=== PATIENT | female | born 1980 ===

== ENCOUNTER 2016-12-23 08:48 | Observation (INO) | payer OTHER ==
[2016-12-23 09:23] VITALS: BP 111/67; RESP 16; O2SAT 99; BMI 21.5
--- NOTE | 2016-12-23 09:25 | ED PDOC ---
HPI: Abdomen Time Seen by Provider: 12/23/16 09:06 Chief Complaint (Nursing): Abdominal Pain Chief Complaint (Provider): Abdominal pain History Per: Patient History/Exam Limitations: no limitations Onset/Duration Of Symptoms: Days Outside of [place] travel?: No Current Symptoms Are (Timing): Still Present Location Of Pain/Discomfort: RLQ Quality Of Discomfort: "Pain" Associated Symptoms: denies: Fever, Chills, Nausea, Vomiting, Diarrhea, Urinary Symptoms Additional Complaint(s): The patient is a 36yo female, hx of ovarian cysts, uterine fibroids, presents to the ED for evaluation of right sided pelvis pain, constant for the past day and worse with movement. Patient reports the pain is less today compared to yesterday but is still present. Patient states she used to take oral contraceptives but has not used it since 2 months ago; patient reports her LMP was in October. She denies any associated vaginal bleeding, dysuria, hematuria, nausea, vomiting, fever, chills. Patient offers no additional medical complaints. Abnormal Vaginal Bleeding: No Last Menstral Period: October Past Medical History Reviewed: Historical Data, Nursing Documentation, Vital Signs Vital Signs: Last Vital Signs Temp 98.6 F 12/23/16 13:45 Pulse 48 L 12/23/16 09:50 Resp 16 12/23/16 09:15 BP 111/67 12/23/16 09:15 Pulse Ox 99 12/23/16 16:08 - Medical History PMH: No Chronic Diseases Other PMH: Ovarian cysts, uterine fibroids - Surgical History Surgical History: No Surg Hx - Family History Family History: States: No Known Family Hx, Unknown Family Hx - Allergies Allergies/Adverse Reactions: Allergies Allergy/AdvReac Type Severity Reaction Status Date / Time No Known Allergies Allergy Verified 12/23/16 09:15 Review of Systems ROS Statement: Except As Marked, All Systems Reviewed And Found Negative Constitutional: Negative for: Fever, Chills Gastrointestinal: Positive for: Abdominal Pain. Negative for: Nausea, Vomiting , Diarrhea Genitourinary Female: Positive for: Pelvic Pain (right sided). Negative for: Dysuria, Hematuria, Vaginal Bleeding Physical Exam - Reviewed Nursing Documentation Reviewed: Yes Vital Signs Reviewed: Yes - Physical Exam Appears: Positive for: Well, Non-toxic, No Acute Distress Head Exam: Positive for: ATRAUMATIC, NORMAL INSPECTION, NORMOCEPHALIC Skin: Positive for: Normal Color, Warm, DRY Eye Exam: Positive for: Normal appearance Neck: Positive for: Normal, Supple Cardiovascular/Chest: Positive for: Regular Rate, Rhythm. Negative for: Murmur Respiratory: Positive for: Normal Breath Sounds. Negative for: Respiratory Distress Gastrointestinal/Abdominal: Positive for: Normal Exam, Soft, Tenderness (right lower quadrant). Negative for: Mass, Guarding, Rebound Back: Positive for: Normal Inspection Extremity: Positive for: Normal ROM. Negative for: Deformity, Swelling Neurologic/Psych: Positive for: Alert, Oriented. Negative for: Motor/Sensory Deficits - Laboratory Results Result Diagrams: 12/23/16 09:30 12/23/16 09:30 - ECG ECG Rhythm: Positive for: ST/T Changes O2 Sat by Pulse Oximetry: 99 (RA) Pulse Ox Interpretation: Normal Medical Decision Making Medical Decision Making: Time: 914 Impression: Right lower quadrant pain DDx: Rule out , related complication; ovarian cyst rupture, ovarian torsion, UTI, appendicitis Plan: -- Labs -- US Pelvis Reassess Scribe Attestation: Documented by Tammi Saba acting as a scribe for Bebe Ambrosio MD. Provider Attestation: All medical record entries made by the Scribe were at my direction and personally dictated by me. I have reviewed the chart and agree that the record accurately reflects my personal performance of the history, physical exam, medical decision making, and the department course for this patient. I have also personally directed, reviewed, and agree with the discharge instructions and disposition. ED OBSERVATION Date of observation admission: 12/23/16 Time of observation admission: 10:10 - Observation admission statement Patient is being placed in observation because:: Patient w/ acute abdominal pain - Goals of Observation Goals of observation are:: Awaiting labs, imaging studies - Progress Note Progress Note: 12/23/16 12:12 Awaiting US results. Patient resting in room, vitals stable. 12/23/16 12:54 US Pelvis/transvag impression: Normal size uterus; 2 small uterine fibroids. Bilateral subcentimeter follicles, dominant left adnexal cyst. 12/23/16 13:30 CT AP ordered due to right lower quadrant pain 12/23/16 16:08 CT AP Impression: Findings consistent with mild and diffuse enteritis Otherwise no significant/acute findings Disposition - Clinical Impression Clinical Impression: Abdominal pain, Enteritis, Ovarian cyst, Fibroid - Patient ED Disposition Is Patient to be Admitted: No Doctor Will See Patient In The: Office Counseled Patient/Family Regarding: Studies Performed, Diagnosis, Need For Followup - Disposition Disposition: Routine/Home Disposition Time: 16:31 Condition: GOOD
[2016-12-23 09:50] VITALS: PULSE 48
[2016-12-23 09:51] LABS: BASO % 0.5 % (0.0-2.0); EOS % 0.6 % (0.0-4.0); HEMOGLOBIN 12.8 g/dL (12.0-16.0); LYMPH # 1.6 K/uL (1.0-4.3); LYMPH % 22.7 % (20.0-40.0); MEAN CELL VOLUME 94.5 fl (81.0-99.0); MEAN CORPUSCULAR HEMOGLOBIN 32.4 pg (27.0-31.0); MEAN CORPUSCULAR HGB CONC 34.3 g/dL (33.0-37.0); MEAN PLATELET VOLUME 7.3 fl (7.2-11.7); MONO # 0.3 K/uL (0.0-0.8); MONO % 4.7 % (0.0-10.0); NEUT # 4.9 K/uL (1.8-7.0); NEUT % 71.5 % (50.0-75.0); RBC 3.97 Mil/uL (3.80-5.20); RED CELL DISTRIBUTION WIDTH 13.4 % (11.5-14.5); WHITE BLOOD COUNT 6.9 K/uL (4.8-10.8)
[2016-12-23 09:52] LABS: BLOOD UREA NITROGEN 11 mg/dl (7-17); CALCIUM 8.8 mg/dL (8.4-10.2); GFR AFRICAN-AMERICAN > 60; GFR NON-AFRICAN AMERICAN > 60
--- NOTE | 2016-12-23 12:46 | US ---
HISTORY: Left-sided pelvic pain. LMP 11/24/2016. COMPARISON: None available. TECHNIQUE: Transabdominal, transvaginal. Real -time technique with 2D, duplex and color Doppler. FINDINGS: UTERUS: Measures 3.9 x 6.5 x 8.1 cm. Normal in size and appearance. Uterine fibroids (2): 1. Posterior fibroid lower uterine segment 1.1 x 0.8 cm. 2. Anterior fibroid to the right of the midline 1.9 x 1.5 x 2 cm. ENDOMETRIUM: Measures 7.0 mm in diameter. No ultrasound findings to suggest gestational sac, fluid, debris, mass or polyp or other pathologic process within the endometrium. CERVIX: No cervical abnormality identified. RIGHT OVARY: Measures 2.7 x 1.5 x 2.7 cm. No solid mass. Normal flow. Multiple subcentimeter follicles. LEFT OVARY: Measures 2.3 x 2.6 x 3.8 cm. No solid mass. Normal flow. Multiple subcentimeter follicles. Dominant cyst 2.1 x 2 cm FREE FLUID: No significant free fluid noted. OTHER FINDINGS: None. IMPRESSION: Normal-size uterus, 2 small uterine fibroids. Bilateral subcentimeter follicles, dominant left adnexal cyst.
[2016-12-23 13:45] VITALS: TEMP 98.6
[2016-12-23] MEDS ORDERED: Sodium Chloride 0.9% 50 ML IV ONE (14:34)
[2016-12-23] MEDS ORDERED: Iohexol 300 100 ML IJ ONE (14:34)
--- NOTE | 2016-12-23 16:03 | CT ---
PROCEDURE: CT Abdomen and Pelvis with contrast HISTORY: RIGHT LOWER QUADRANT pain COMPARISON: December 23, 2016. PELVIC ULTRASOUND TECHNIQUE: Contrast dose: 95 cc Omnipaque 300 Radiation dose: Total exam DLP = 538.19 mGy-cm. This CT exam was performed using one or more of the following dose reduction techniques: Automated exposure control, adjustment of the mA and/or kV according to patient size, and/or use of iterative reconstruction technique. FINDINGS: LOWER THORAX: Unremarkable. LIVER: Unremarkable. No gross lesion or ductal dilatation. GALLBLADDER AND BILE DUCTS: Unremarkable. PANCREAS: Unremarkable. No gross lesion or ductal dilatation. SPLEEN: Unremarkable. ADRENALS: Unremarkable. No mass. KIDNEYS AND URETERS: Unremarkable. No hydronephrosis. No solid mass. VASCULATURE: Unremarkable. No aortic aneurysm. BOWEL: Fluid-filled loops of small bowel the overall appearance suggests mild enteritis. No evidence of colitis. Constipation without fecal impaction or obstruction. APPENDIX: No abnormalities to suggest acute appendicitis. No right lower quadrant inflammatory processes identified. PERITONEUM: Unremarkable. No free fluid. No free air. LYMPH NODES: Unremarkable. No enlarged lymph nodes. BLADDER: Unremarkable. REPRODUCTIVE: Bilateral follicles/cysts. Findings confirmed on concurrent ultrasound. BONES: No acute fracture. OTHER FINDINGS: None. IMPRESSION: Findings consistent with mild and diffuse enteritis. Otherwise no significant/ acute findings. Additional benign and/or incidental findings described above.
== END 2016-12-23 17:33 | disposition home or self-care (01) ==
LOC: H.ER 08:48 → H.EROBSV 10:09
PROVIDERS: ADMIT Emergency Medicine; ATTEND Emergency Medicine
DX: K52.9 Noninfective gastroenteritis and colitis, unspecified (principal); R10.31 Right lower quadrant pain; D25.9 Leiomyoma of uterus, unspecified; N83.202 Unspecified ovarian cyst, left side